=== PATIENT | male | born 1970 | race Caucasian/White ===

== ENCOUNTER 2018-07-17 15:09 | Emergency (ER) | payer BC ==
[~2018-07-17] VITALS: Ht 182.9 cm; Wt 141.0 kg
[2018-07-17 15:16] VITALS: BP 162/105
[2018-07-17] MEDS ORDERED: LIDOCAINE 1%, 10ML INFIL ONE (15:30)
[2018-07-17] MEDS ORDERED: LIDOCAINE-MPF 1%, 5ML ONE (15:47)
== END 2018-07-17 16:11 | disposition home or self-care (01) ==
LOC: ED 15:49
DX: L98.9 Disorder of the skin and subcutaneous tissue, unspecified (principal)
CPT/HCPCS: 99281

== ENCOUNTER 2019-12-24 14:39 | Emergency (ER) | payer BC ==
[~2019-12-24] VITALS: Ht 182.9 cm; Wt 138.1 kg
[2019-12-24 14:47] VITALS: BP 165/107
--- NOTE | 2019-12-24 15:02 | NUR ---
BREAK RN. PT STATES RT FLANK AREA PAIN X2 WEEKS OFF AND ON. DENIES URINARY SYMPTOMS. PT STATES OCCASSIONAL "SHARP" PAIN IN THE RT FLANK AREA WHILE SLEEPING. PT AWAITING ERMD ASSESSMENT.
[2019-12-24 15:29] LABS: BASOPHILS # (AUTO) 0.03 x10^3/uL (0-0.1); BASOPHILS % (AUTO) 0 % (0-1); EOSINOPHILS # (AUTO) 0.11 x10^3/uL (0-0.4); EOSINOPHILS % (AUTO) 2 % (1-7); LYMPHOCYTES # (AUTO) 2.06 x10^3/uL (1-3.4); LYMPHOCYTES % (AUTO) 33 % (22-44); MD NO; MEAN CORPUSCULAR HEMOGLOBIN 31.8 pg (27.5-34.5); MEAN CORPUSCULAR HGB CONC 34.1 g/dL (33.2-36.2); MEAN CORPUSCULAR VOLUME 93.2 fL (81-97); MEAN PLATELET VOLUME 9.4 fL (7.4-10.4); MONOCYTES # (AUTO) 0.54 x10^3/uL (0.2-0.8); MONOCYTES % (AUTO) 9 % (2-9); NEUTROPHILS # (AUTO) 3.53 x10^3/uL (1.8-6.8); NEUTROPHILS % (AUTO) 56 % (42-75); PLATELET COUNT 164 x10^3/uL (130-400); RED BLOOD COUNT 5.69 x10^6/uL (4.38-5.82); RED CELL DISTRIBUTION WIDTH 13.4 % (9.4-14.8)
[2019-12-24] MEDS ORDERED: CYCLOBENZAPRINE 10 MG TABLET PO ONE (15:30)
[2019-12-24] MEDS ORDERED: KETOROLAC 30 MG/1 ML IM ONE (15:30)
[2019-12-24 15:39] LABS: ALANINE AMINOTRANSFERASE 54 U/L (12-78); ALBUMIN 4.2 g/dL (3.4-5.0); ANION GAP 5 mmol/L (5-15); CALCIUM 9.2 mg/dL (8.5-10.1); CHLORIDE 106 mmol/L (98-107); CREATININE 1.06 mg/dL (0.7-1.3)
[2019-12-24 15:41] LABS: ALKALINE PHOSPHATASE 66 U/L (45-117); BILIRUBIN,TOTAL 1.2 mg/dL (0.2-1.0); TOTAL PROTEIN 8.1 g/dL (6.4-8.2)
[2019-12-24] MEDS ORDERED: CYCLOBENZAPRINE 10 MG TABLET ONE (15:54)
[2019-12-24] MEDS ORDERED: KETOROLAC 30 MG/1 ML ONE (15:54)
[2019-12-24 16:44] LABS: MICROSCOPIC NOT IND
== END 2019-12-24 17:33 | disposition home or self-care (01) ==
LOC: ED 16:40
DX: S39.012A Strain of muscle, fascia and tendon of lower back, initial encounter (principal); X58.XXXA Exposure to other specified factors, initial encounter; Y93.89 Activity, other specified; Y92.89 Other specified places as the place of occurrence of the external cause; Y99.8 Other external cause status
CPT/HCPCS: 36415; 74176; 80053; 81003; 83690; 85025; 96372; 99284; J1885